=== PATIENT | male | born 1945 | race Caucasian/White ===

== ENCOUNTER 2023-10-24 06:20 | Day surgery (SDC) | payer MEDICARE, SELFPAY ==
[2023-10-17 13:21] VITALS: BMI 18.3
[2023-10-17 13:44] LABS: Hematocrit 34.2 % (39.0-52.0); Hemoglobin 10.9 g/dL (13.0-18.0); Mean Corp Hgb Conc. 31.9 g/dL (33.0-37.0); Mean Corpuscular Hgb 26.5 pg (27.0-31.0); Mean Platelet Volume 9.6 fL (7.4-10.4); Platelet Count 453 10^3/uL (130-400); Red Blood Cell Count 4.12 10^6/uL (4.70-6.10); Red Cell Dist. Width 18.8 % (11.5-14.5); White Blood Cell Count 6.7 10^3/uL (4.8-10.8)
[2023-10-17 13:55] LABS: INR 1.02; PT 13.4 Sec (11.4-14.6)
[2023-10-17 13:56] LABS: APTT 36.7 Sec (23.4-35.0)
[2023-10-17 14:03] LABS: Urine Albumin Trace (Neg - Trace); Urine Bilirubin 1+ (Negative); Urine Character Very Cloudy (Clear); Urine Color Yellow; Urine Glucose Negative (Negative); Urine Ketone Negative (Negative); Urine Leukocyte 2+ (Negative); Urine Nitrite Positive (Negative); Urine Occult Blood 3+ (Negative); Urine Specific Gravity 1.015 (<1.030); Urine Urobilinogen Negative (Neg - 1+)
[2023-10-17 14:15] LABS: Blood Urea Nitrogen 13 mg/dl (9-20); Carbon Dioxide 26 mmol/L (22-30); Chloride 103 mmol/L (98-107); Estimated Creatinine Clearance 75 ml/min; Glucose 109 mg/dl (70-99); Potassium 4.8 mmol/L (3.5-5.1); Sodium 137 mmol/L (135-145); eGFR > 60.00
[2023-10-17 14:22] LABS: Urine Amorphous Seen; Urine Squamous Cell 0-2 /LPF (Few)
[2023-10-17 14:31] LABS: Urine Bacteria Many (Negative); Urine White Cell 80-90 /HPF (0-5)
[2023-10-24] VITALS (13 sets, daily range): BP systolic 114–157; BP diastolic 59–70; BMI 18.3
[2023-10-24 08:07] LABS: Glucose - Point of Care 126 mg/dl (70-99)
[2023-10-24] MEDS: NORMOSOL-R 1000 IV (08:17)
--- NOTE | 2023-10-24 09:54 | W.PN.ADMIT ---
Progress Note - Admit
Progress Note - Admit
pt underwent uncomplicated cysto and sp tube placement
sp tube plugged- vaughn to bag drainage
admit overnight due to sig medical issues and hematuria
[2023-10-24 10:11] LABS: Glucose - Point of Care 90 mg/dl (70-99)
[2023-10-24] MEDS: NSS 1000 IV ×2 (10:29→22:34)
--- NOTE | 2023-10-24 11:42 | PTCARENOTE ---
awaiting call back from RN to give report.
--- NOTE | 2023-10-24 12:30 | PTCARENOTE ---
Patient admitted from [facility] post suprapubic tube placement.Patient denies any pain at present.Vital signs are stable.Patient still with indwelling vaughn catheter with arianne urine.Suprapubic tube will not be connected until saturday.The patient is in
his bed with the call kay.
[2023-10-24] MEDS: ULTRAM 50 MG PO (14:15)
[2023-10-24] MEDS: VALIUM INJECTION 2.5 MG IV ×2 (15:52→22:33)
[2023-10-24] MEDS: DILAUDID 0.5 MG IV ×3 (17:18→23:37)
[2023-10-24] MEDS: OMNICEF 300 MG PO (20:16)
[2023-10-24] MEDS: COLACE 100 MG PO (20:16)
[2023-10-24] MEDS: UROCIT-K 10 MEQ PO (20:16)
[2023-10-24] MEDS: MELATONIN 5 MG PO (20:26)
[2023-10-25] MEDS: DILAUDID 0.5 MG IV ×3 (03:35→09:55)
[2023-10-25 03:44] VITALS: BMI 18.8
[2023-10-25 03:45] VITALS: BP 120/65
--- NOTE | 2023-10-25 07:36 | W.PN.URO.CBU ---
Today's Communication / Plan
-
both tubes to drainage
plan discharge later today
Assessment / Plan
-
s/p sp tube placement
continue urethral cath and placed sp tube to bag drainage
will re-assess later today- if drainage has slowed- cleared for discharge with plans for urethral cath removal on saturday
Diagnosis
-
Date of Service: October 25, 2023
-
Patient Diagnosis:
urinary retention
Post Op Day:
sp tube 10/23
Subjective
-
pt feels ok
urine clear via urethral catheter
moderate amount of drainage around sp tube
Objective
-
Vital Signs
Temp Pulse Resp BP Pulse Ox
97.3 F 55 16 120/65 99
10/25/23 03:45 10/25/23 03:45 10/25/23 03:45 10/25/23 03:45 10/25/23 03:45
Intake and Output
10/24/23 10/25/23 10/26/23
06:59 06:59 06:59
Intake Total 2000 / 2000
Output Total 950 / 950
Balance 1050 / 1050
Intake:
Oral fluids 440 / 440
IV fluids (Total) 1560 / 1560
normosol 100 / 100
Output:
Urine, Vaughn 950 / 950
Laboratory Results
10/17/23 13:17
10/17/23 13:17
Review of Systems
-
Constitutional: Fatigue
Respiratory: No Symptoms
Cardiac: No Symptoms
Abdomen/GI: No Symptoms
Physical Exam
-
General - no acute distress
Abdomen - soft, non-tender, sp tube in place- slow drip of urine around site
Genitalia - normal- vaughn in place- urine clear
[2023-10-25 07:57] VITALS: BP 118/59
[2023-10-25] MEDS: ULTRAM 50 MG PO (08:39)
[2023-10-25] MEDS: COLACE 100 MG PO (08:40)
[2023-10-25] MEDS: OMNICEF 300 MG PO (08:40)
[2023-10-25] MEDS: LIPITOR 80 MG PO (08:40)
[2023-10-25] MEDS: PROSCAR 5 MG PO (08:41)
[2023-10-25] MEDS: GLUCOPHAGE 500 MG PO (08:41)
[2023-10-25] MEDS: CELEXA 20 MG PO (08:41)
[2023-10-25] MEDS: UROCIT-K 10 MEQ PO (08:41)
[2023-10-25] MEDS: NSS 1000 IV (11:25)
[2023-10-25 11:27] VITALS: BP 101/46
--- NOTE | 2023-10-25 11:55 | W.PN.UPDATE ---
Update Note
Progress Note Update
pt comfortable
sp tube with minimal leakage
set for discharge
--- NOTE | 2023-10-25 13:54 | CM ---
Addendum entered by Taryn Barrios 10/25/23 14:11:
fax for [facility] [phone]
Original Note:
Patient seen at bedside. Patient requested CM call his . Lynette [phone]. Patient states that they live in a one story home with a ramp. Patient states that they have had a [facility] and would like to have them [facility]. CM sent tt
to physician requesting VN consult. CM will continue to follow for discharge planning needs.
Plan; home with VN; [facility]
== END 2023-10-25 13:20 | disposition home or self-care (01) ==
LOC: SDS 06:20
PROVIDERS: ATTENDING PHYSICIAN Specialist; FAMILY PHYSICIAN Internal Medicine
DX: R33.9 Retention of urine, unspecified (principal); N40.1 Benign prostatic hyperplasia with lower urinary tract symptoms
CPT/HCPCS: 51040; 36415; 80048; 81003; 81015; 82962; 85027; 85610; 85730; 93005